=== PATIENT | female | born 1965 | race African-American/Black ===

== ENCOUNTER 2016-08-31 12:22 | Emergency (ER) | payer OTHER ==
[~2016-08-31] VITALS: Ht 167.6 cm; Wt 67.4 kg
[~2016-08-31 12:22] MED LIST: AMBIEN5 MG PO; BC POWDER PACK1 EACH PO; BENADRYL50 MG PO; BENAZEPRIL HCL20 MG PO; BENTYL10 MG PO; BENTYL20 MG PO; BUTALB-APAP-CA1 EACH; DICYCLOMINE HCL20 MG PO; DILAUDID2 MG PO; FLEXERIL10 MG PO; FOCALIN2.5 MG; HYDROCHLOROTH12.5 M3 PO; LISINOPRIL10 MG PO; MOTRIN600 MG PO; NAPROSYN500 MG PO; NEURONTIN300 MG PO; NORCO 5/3251 TABLET PO; OMEPRAZOLE40 M1 PO; OXYCODONE HCL5 M1 PO; PERCOCET 5/31 TABLET PO; PREDNISONE10 MG PO; ULTRAM50 MG PO; ZOFRAN4 MG PO; [UNRECOGNIZED DRUG - OTHER] PO
[2016-08-31] MEDS ORDERED: PERCOCET 5/31 TABLET PO (14:14)
[2016-08-31 14:30] VITALS: BP 132/99
== END 2016-08-31 14:30 | disposition home or self-care (01) ==
LOC: EME 12:22
PROC: 2W3GX1Z Immobilization of Right Thumb using Splint (ICD-10-PCS; principal; 2016-08-31)
DX: S62.511A Displaced fracture of proximal phalanx of right thumb, initial encounter for closed fracture (principal); X58.XXXA Exposure to other specified factors, initial encounter; Y93.89 Activity, other specified; Y92.009 Unspecified place in unspecified non-institutional (private) residence as the place of occurrence of the external cause
CPT/HCPCS: 73130; 99281; 99283